=== PATIENT | male | born 1980 | race Caucasian/White ===

== ENCOUNTER 2016-06-20 19:31 | Emergency (ER) | payer MEDICAID ==
[2016-06-20] MEDS ORDERED: ONDANSETRON 4 MG VIAL ONE (21:55)
[2016-06-20] MEDS ORDERED: SODIUM CHLORIDE 0.9% 1,000 ML ONE ×2 (21:55→23:29)
[2016-06-20] MEDS ORDERED: SODIUM CHLORIDE 0.9% 50 ML IV ONE (23:13)
[2016-06-20] MEDS ORDERED: PROMETHAZINE 25 MG/ML VIAL ONE (23:13)
== END 2016-06-21 01:55 | disposition home or self-care (01) ==
LOC: ER 19:31
DX: R11.2 Nausea with vomiting, unspecified (principal); E86.0 Dehydration; F10.20 Alcohol dependence, uncomplicated; K29.01 Acute gastritis with bleeding; Z79.899 Other long term (current) drug therapy; F17.210 Nicotine dependence, cigarettes, uncomplicated
CPT/HCPCS: 36415; 80053; 81001; 82271; 83690; 85025; 96361; 96374; 96375